=== PATIENT | male | born 1975 | race American Indian/Alaskan Native ===

== ENCOUNTER 2020-11-13 07:08 | Emergency (ER) | payer SELFPAY ==
[2020-11-13] MEDS ORDERED: SODIUM CHLORIDE 0.9% 1000 ML 1,000 ML IV ONE (07:57)
[2020-11-13] MEDS ORDERED: MORPHINE 4 MG/1 ML INJ IV ONE (07:58)
[2020-11-13] MEDS ORDERED: ONDANSETRON 4 MG/2 ML INJ IV ONE ×2 (07:58→11:21)
[2020-11-13] MEDS ORDERED: KETOROLAC 30 MG/1 ML INJ IV ONE (08:31)
--- NOTE | 2020-11-13 08:39 | Cat Scan Report ---
CT OF THE ABDOMEN AND PELVIS WITHOUT CONTRAST INDICATION / CLINICAL INFORMATION: Left flank pain and history of kidney stones. TECHNIQUE: All CT scans at this location are performed using CT dose reduction for ALARA by means of automated exposure control. COMPARISON: None available. FINDINGS: ABDOMEN: There is mild to moderate left pelvocaliectasis and proximal ureterectasis. There is mild as sociated left perinephric soft tissue stranding. There is a 9 x 5 mm calculus in the proximal left ur eter at the L2-3 level. There are also are a couple of stone fragments in the left ureter at the L3-4 level, the largest of which measures approximately 2 mm. There is a 2 mm nonobstructive calculus in the lower pole of the left kidney. The right kidney is normal. The liver, spleen, gallbladder, bile ducts, pancreas, adrenal glands and bowel demonstrate no signifi cant abnormality. No adenopathy is present. There is minimal left basilar subsegmental atelectasis. PELVIS: The distal ureters, urinary bladder, prostate gland and seminal vesicles are normal. There is prominent calcification of the vas deferens bilaterally. A normal appendix is present and there is n o evidence of diverticulitis. No abnormal mass or fluid collection is seen. I do not identify a herni a. No acute osseous abnormality is seen. IMPRESSION: 1. 9 x 5 mm calculus in the left ureter at the L2-3 level is causing mild to moderate hydronephrosis. 2. A couple of tiny stone fragments in the left ureter slightly below the larger calculus also may be minimally obstructive. Tiny nonobstructive left renal calculus. 3. Bilateral vas deferens calcifications are suggestive of diabetes. Signer Name: Jet Suggs MD Signed: 11/13/2020 8:35 AM Workstation Name: [id number]
--- NOTE | 2020-11-13 08:55 | Emergency Department Report ---
<KAT MALAGON - Last Filed: 11/13/20 11:22> ED Abdominal Pain HPI - General Chief Complaint: Abdominal Pain Stated Complaint: LLQ ABD PAIN Time Seen by Provider: 11/13/20 08:00 Source: patient, family Mode of arrival: Ambulatory Limitations: No Limitations - History of Present Illness Initial Comments: 45-year-old -Malagasy male presents to the emergency room complaining of left side abdominal pain that started 3 days ago but is getting worse. Patient states last night at 7 PM the pain reached a maximal intensity and has been constant. Patient reports nausea and vomiting but denies any hematuria. Patient reports he has a history of kidney stones. He currently takes no medications on a daily basis but has a allergy to penicillin. Patient denies any testicular pain or swelling and denies any penile discharge. MD Complaint: flank pain Onset/Timin -: days(s) Location: L flank Radiation: LLQ Severity scale (0 -10): 9 Quality: stabbing, sharp Consistency: intermittent Improves With: nothing Worsens With: nothing Associated Symptoms: nausea, vomiting. denies: diarrhea, fever, constipation, dysuria, hematemesis, hematochezia - Related Data Home Medications Medication Instructions Recorded Confirmed Last Taken No Known Home Medications [No 11/13/20 11/13/20 Unknown Reported Home Medications] Allergies Allergy/AdvReac Type Severity Reaction Status Date / Time No Known Allergies Allergy Verified 11/13/20 07:16 ED Review of Systems Comment: All other systems reviewed and negative ED Past Medical Hx - Past Medical History Previous Medical History?: No - Surgical History Past Surgical History?: No - Medications Home Medications: Home Medications Medication Instructions Recorded Confirmed Last Taken Type No Known Home Medications [No 11/13/20 11/13/20 Unknown History Reported Home Medications] ED Physical Exam - General Limitations: No Limitations General appearance: alert, in no apparent distress, other (Appears to be uncomfortable) - Head Head exam: Present: atraumatic, normocephalic - Eye Eye exam: Present: normal appearance - ENT ENT exam: Present: normal external ear exam - Neck Neck exam: Present: normal inspection, full ROM - Respiratory Respiratory exam: Absent: accessory muscle use - Cardiovascular Cardiovascular Exam: Present: regular rate - GI/Abdominal GI/Abdominal exam: Present: soft, tenderness (Left lower quadrant), normal bowel sounds - Extremities Exam Extremities exam: Present: normal inspection, full ROM - Back Exam Back exam: Present: normal inspection - Neurological Exam Neurological exam: Present: alert, oriented X3, normal gait - Psychiatric Psychiatric exam: Present: normal affect, normal mood - Skin Skin exam: Present: warm, dry, intact, normal color. Absent: rash ED Course - Reevaluation(s) Reevaluation #1: 11/13/20 11:22 Reevaluated patient he is sitting on the side of the bed and states that he still has pain. ED Medical Decision Making - Lab Data Result diagrams: 11/13/20 07:38 11/13/20 07:38 - Radiology Data Radiology results: report reviewed [facility] [address] [place] [address] Cat Scan Report Signed Patient: TITO LUZ MR#: [id number] 7 : 1975 Acct:[id number] Age/Sex: 45 / M ADM Date: 11/13/20 Loc: ED Attending Dr: Ordering Physician: IVORY EMERSON Date of Service: 11/13/20 Procedure(s): CT abdomen pelvis wo con Accession Number(s): [id number] cc: IVORY EMERSON CT OF THE ABDOMEN AND PELVIS WITHOUT CONTRAST INDICATION / CLINICAL INFORMATION: Left flank pain and history of kidney stones. TECHNIQUE: All CT scans at this location are performed using CT dose reduction for ALARA by means of automated exposure control. COMPARISON: None available. FINDINGS: ABDOMEN: There is mild to moderate left pelvocaliectasis and proximal ureterectasis. There is mild associated left perinephric soft tissue stranding. There is a 9 x 5 mm calculus in the proximal left ureter at the L2-3 level. There are also are a couple of stone fragments in the left ureter at the L3-4 level, the largest of which measures approximately 2 mm. There is a 2 mm nonobstructive calculus in the lower pole of the left kidney. The right kidney is normal. The liver, spleen, gallbladder, bile ducts, pancreas, adrenal glands and bowel demonstrate no significant abnormality. No adenopathy is present. There is minimal left basilar subsegmental atelectasis. PELVIS: The distal ureters, urinary bladder, prostate gland and seminal vesicles are normal. There is prominent calcification of the vas deferens bilaterally. A normal appendix is present and there is no evidence of diverticulitis. No abnormal mass or fluid collection is seen. I do not identify a hernia. No acute osseous abnormality is seen. IMPRESSION: 1. 9 x 5 mm calculus in the left ureter at the L2-3 level is causing mild to moderate hydronephrosis. 2. A couple of tiny stone fragments in the left ureter slightly below the larger calculus also may be minimally obstructive. Tiny nonobstructive left renal calculus. 3. Bilateral vas deferens calcifications are suggestive of diabetes. Signer Name: Jet Suggs MD Signed: 11/13/2020 8:35 AM Workstation Name: [id number] Transcribed By: RT Dictated By: eJt Suggs MD Electronically Authenticated By: Jet Suggs MD Signed Date/Time: 11/13/20834 DD/ 8 TD/TT: - Medical Decision Making 45-year-old -Malagasy male presents to the emergency room complaining of left side abdominal pain that started 3 days ago but is getting worse. Patient states last night at 7 PM the pain reached a maximal intensity and has been constant. Patient reports nausea and vomiting but denies any hematuria. Patient reports he has a history of kidney stones. He currently takes no medications on a daily basis but has a allergy to penicillin. Patient denies any testicular pain or swelling and denies any penile discharge. Basic labs have been ordered urinalysis IV, normal saline Toradol morphine. Ordered a CT noncontrast of pelvic and abdomen was canceled by Dr. Moody. 1. 9 x 5 mm calculus in the left ureter at the L2-3 level is causing mild to moderate hydronephrosis. 2. A couple of tiny stone fragments in the left ureter slightly below the larger calculus also may be minimally obstructive. Tiny nonobstructive left renal calculus. 3. Bilateral vas deferens calcifications are suggestive of diabetes. Reassessed patient ordered Dilaudid 1 mg with Zofran 4 mg IV. Urinalysis is still pending and is 1124. ED Disposition Clinical Impression: Kidney stone on left side, Ureteral calculus, left, Hydronephrosis, left, Intractable abdominal pain Disposition: 02 SHORT TERM HOSPITAL Condition: Stable <DIVYA MOODY - Last Filed: 11/13/20 13:04> ED Review of Systems ROS: Stated complaint: LLQ ABD PAIN Other details as noted in HPI ED Course Vital Signs 11/13/20 11/13/20 11/13/20 07:18 11:21 11:31 Temperature 98.4 F Pulse Rate 72 Respiratory 16 18 20 Rate Blood Pressure 165/100 [Right] O2 Sat by Pulse 95 100 Oximetry - Reevaluation(s) Reevaluation #2: 11/13/20 12:01 I spoke to the patient. He said he has been in pain since receiving initial morphine and Zofran. After dialudid and zofran provided by midlevel patient developed vomiting. He states he has history of kidney stones since age 18 and never has required lithotripsy. In the past he has IV hydration with spontaneous passing of stones. Last kidney stone May 2019 which improved with IV hydration. Reevaluation #3: 11/13/20 12:49 Patient informed of plan for transfer to [facility] for admission for definitive urology management. Patient has food at the bedside but states he did not eat. Recommend patient NPO - Consultations Consultation #1: 11/13/20 12:05 [facility] paged, must verify that urology is specialty person and will call back. 11/13/20 12:[address] Banks [facility] attending who has accepted patient for transfer to inpatient bed at [facility] ED Medical Decision Making - Lab Data Result diagrams: 11/13/20 07:38 11/13/20 07:38 Lab Results 11/13/20 11/13/20 11/13/20 Range/Units 07:38 07:38 Unknown WBC 11.7 H (4.5-11.0) K/mm3 RBC 4.60 (3.65-5.03) M/mm3 Hgb 14.3 (11.8-15.2) gm/dl Hct 41.9 (35.5-45.6) % MCV 91 (84-94) fl MCH 31 (28-32) pg MCHC 34 (32-34) % RDW 13.2 (13.2-15.2) % Plt Count 232 (140-440) K/mm3 Lymph % (Auto) 7.5 L (13.4-35.0) % [place] % (Auto) 8.4 H (0.0-7.3) % Eos % (Auto) 0.3 (0.0-4.3) % Baso % (Auto) 0.3 (0.0-1.8) % Lymph # (Auto) 0.9 L (1.2-5.4) K/mm3 [place] # (Auto) 1.0 H (0.0-0.8) K/mm3 Eos # (Auto) 0.0 (0.0-0.4) K/mm3 Baso # (Auto) 0.0 (0.0-0.1) K/mm3 Seg Neutrophils % 83.5 H (40.0-70.0) % Seg Neutrophils # 9.7 H (1.8-7.7) K/mm3 Sodium 139 (137-145) mmol/L Potassium 4.5 (3.6-5.0) mmol/L Chloride 101.6 (98-107) mmol/L Carbon Dioxide 25 (22-30) mmol/L Anion Gap 17 mmol/L BUN 14 (9-20) mg/dL Creatinine 1.2 (0.8-1.3) mg/dL Estimated GFR > 60 ml/min BUN/Creatinine Ratio 12 % Glucose 112 H (75-100) mg/dL Calcium 9.4 (8.4-10.2) mg/dL Total Bilirubin 0.60 (0.1-1.2) mg/dL AST 23 (5-40) units/L ALT 15 (7-56) units/L Alkaline Phosphatase 101 (35-129) units/L Total Protein 7.7 (6.3-8.2) g/dL Albumin 4.4 (3.9-5) g/dL Albumin/Globulin Ratio 1.3 % Urine Color Straw (Yellow) Urine Turbidity Clear (Clear) Urine pH 6.0 (5.0-7.0) Ur Specific [place] 1.013 (1.003-1.030) Urine Protein <15 mg/dl (Negative) mg/dL Urine Glucose (UA) Neg (Negative) mg/dL Urine Ketones Neg (Negative) mg/dL Urine Blood Mod (Negative) Urine Nitrite Neg (Negative) Urine Bilirubin Neg (Negative) Urine Urobilinogen < 2.0 (<2.0) mg/dL Ur Leukocyte Esterase Neg (Negative) Urine WBC (Auto) 3.0 (0.0-6.0) /HPF Urine RBC (Auto) 24.0 (0.0-6.0) /HPF Urine Mucus 1+ /HPF - Medical Decision Making UA unremarkable for infection. Patient has persistent pain despite ED treatment. Patient has a significantly large stone that is unlikely to pass spontaneously. Case discussed with on-call urologist at [place] Dr. Banks and has been accepted for inpatient admission for definitive management. Critical Care Time: No Critical care attestation.: If time is entered above; I have spent that time in minutes in the direct care of this critically ill patient, excluding procedure time. ED Disposition Is pt being admited?: No Time of Disposition: 12:52 (Dr. Banks/Urology/[facility]/ inpatient)
[2020-11-13 09:26] LABS: Basophils % (Auto) 0.3 % (0.0-1.8); Eosinophils % (Auto) 0.3 % (0.0-4.3); Hematocrit 41.9 % (35.5-45.6); Hemoglobin 14.3 gm/dl (11.8-15.2); Lymphocytes # (Auto) 0.9 K/mm3 (1.2-5.4); Lymphocytes % (Auto) 7.5 % (13.4-35.0); Mean Corpuscular HGB Conc 34 % (32-34); Mean Corpuscular Volume 91 fl (84-94); Monocytes % (Auto) 8.4 % (0.0-7.3); Platelet Count 232 K/mm3 (140-440); Red Cell Distribution Width 13.2 % (13.2-15.2)
[2020-11-13 09:43] LABS: Alanine Aminotransferase 15 units/L (7-56); Albumin 4.4 g/dL (3.9-5); BUN/Creatinine Ratio 12; Blood Urea Nitrogen 14 mg/dL (9-20); Calcium 9.4 mg/dL (8.4-10.2); Hemolysis Index 31
[2020-11-13] MEDS ORDERED: HYDROmorphone 1 MG/1 ML INJ IV ONE (11:21)
[2020-11-13] MEDS ORDERED: SODIUM CHLORIDE 0.9% 1000 ML 1,000 ML ONE (11:28)
[2020-11-13 11:55] LABS: Bilirubin,Urine NEG (Negative); Blood,Urine MOD (Negative); Color,Urine Straw (Yellow); Mucus,Urine 1+ /HPF; Protein,Urine <15 mg/dL mg/dL (Negative); Urobilinogen,Urine < 2.0 mg/dL (<2.0)
[2020-11-13] MEDS ORDERED: ONDANSETRON 4 MG/2 ML INJ ONE (17:41)
[2020-11-13 17:49] VITALS: BP 152/86
[2020-11-13] MEDS ORDERED: HYDROmorphone 1 MG/1 ML INJ IM SCH (18:00)
== END 2020-11-13 17:48 | disposition short-term general hospital (02) ==
LOC: ED 07:08
DX: N20.1 Calculus of ureter (principal); N13.30 Unspecified hydronephrosis
CPT/HCPCS: 36415; 74176; 80053; 81001; 85025; 96361; 96374; 96375; 96376; 99285; J1170; J2270; J2405; J7030